=== PATIENT | female | born 1995 | race Caucasian/White ===

== ENCOUNTER 2016-05-26 13:29 | Emergency (ER) | payer OTHER ==
[~2016-05-26] VITALS: Ht 160 cm; Wt 59.0 kg
[~2016-05-26 13:29] MED LIST: ADDE30XR PO; ARIP1TAB7 PO; CITA20 PO; DICL75 PO; EPIP0.3I IM
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
[2016-05-26 13:48] VITALS: BP 121/70; PULSE 89; RESP 20; TEMP 98.3; O2SAT 100
[2016-05-26 14:20] LABS: AUTOMATED NEUTROPHIL # 8.2 TH/MM3 (1.8-7.7); BASOPHIL # 0.1 TH/MM3 (0-0.2); BASOPHIL % 0.7 % (0.0-2.0); EOSINOPHIL # 0.1 TH/MM3 (0-0.4); EOSINOPHIL % 0.9 % (0.0-4.0); HEMATOCRIT 39.1 % (35.0-46.0); HEMO FLAGS DIFF FINAL; LYMPH % 15.3 % (9.0-44.0); LYMPHOCYTE # 1.7 TH/MM3 (1.0-4.8); MEAN CELL VOLUME 76.3 FL (80.0-100.0); MEAN CORPUSCULAR HEMOGLOBIN 26.1 PG (27.0-34.0); MEAN CORPUSCULAR HGB CONC 34.3 % (32.0-36.0); MONO % 7.5 % (0.0-8.0); NEUT % 75.6 % (16.0-70.0); PLATELET COUNT 308 TH/MM3 (150-450); RED BLOOD COUNT 5.12 MIL/MM3 (4.00-5.30); RED CELL DISTRIBUTION WIDTH 14.1 % (11.6-17.2); WHITE BLOOD COUNT 10.9 TH/MM3 (4.0-11.0)
[2016-05-26 14:24] LABS: BACTERIA, URINE FEW /hpf; BLOOD, URINE NEG (NEG); COMMENT (UR) CULT NOT INDICATED; CULTURE IF INDICATED CULT NOT INDICATED; GLUCOSE,URINE NEG (NEG); KETONE, URINE NEG (NEG); MUCUS URINE FEW /lpf (OCC); NITRITE,URINE NEG (NEG); PH, URINE 6.5 (5.0-8.5); SQUAMOUS EPITHELIAL CELL URINE 15 /hpf (0-5); URINE COLOR YELLOW (YELLW/STRAW)
[2016-05-26 14:27] LABS: AMPHETAMINE, URINE NEG (NEG); BARBITURATES, URINE NEG (NEG); COCAINE, URINE NEG (NEG)
[2016-05-26 14:38] LABS: ALT (GPT) 19 U/L (9-42); ANION GAP 9 MEQ/L (5-15); AST (GOT) 15 U/L (16-38); BICARBONATE 26.5 MEQ/L (21.0-32.0); BLOOD UREA NITROGEN 7 MG/DL (7-18); CHLORIDE 104 MEQ/L (98-107); GLOMERULAR FILTRATION RATE 115 ML/MIN (>89); POTASSIUM 3.4 MEQ/L (3.5-5.1); SODIUM (NA) 139 MEQ/L (136-145)
[2016-05-26 14:41] LABS: ALKALINE PHOSPHATASE 70 U/L (45-117); TOTAL BILIRUBIN ADULT 0.3 MG/DL (0.2-1.0)
[2016-05-26 18:00] VITALS: BP 116/58; PULSE 85; RESP 18; TEMP 97.9; O2SAT 96
[2016-05-26] MEDS ORDERED: IBUPROFEN 600 MG TAB PO ONE (21:15)
[2016-05-26 22:44] VITALS: BP 116/52; PULSE 58; RESP 18; O2SAT 98
[2016-05-27 02:42] VITALS: BP 117/50; PULSE 78; RESP 18; TEMP 97.3; O2SAT 98
[2016-05-27 06:28] VITALS: BP 116/54; PULSE 84; RESP 17; O2SAT 99
[2016-05-27 13:14] VITALS: BP 117/56; PULSE 70; RESP 18; O2SAT 96
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
== END 2016-05-27 14:59 | disposition home or self-care (01) ==
LOC: NEPC 13:29 → NEPJ 05-27 14:59
DX: F43.25 Adjustment disorder with mixed disturbance of emotions and conduct (principal); F12.10 Cannabis abuse, uncomplicated
CPT/HCPCS: 80053; 80307; 81001; 84703; 85025; 99283